=== PATIENT | female | born 1960 | race African-American/Black ===

== ENCOUNTER → 2017-08-12 | Outpatient (CLI) | payer BC ==
[2016-09-30 14:19] VITALS: BP 153/83
[~2017-08-12] MED LIST: HYDR-971 PO; ONDA4TAB10 SL
--- NOTE | 2017-08-13 13:54 | RAD ---
DATE: 08/12/2017 EXAM: DIGITAL SCREEN BILAT W/CAD HISTORY: Asymptomatic screening mammogram COMPARISON: Prior mammogram from 08/06/2016, 07/11/2015, 11/30/2013 This study was interpreted with the benefit of Computerized Aided Detection (CAD). The breast parenchyma shows scattered fibroglandular densities. Breast parenchyma level B. FINDINGS: Bilateral CC and MLO views of the breasts were performed. Right breast: There are no suspicious microcalcifications, masses or areas of architectural distortion. Left breast: There are no suspicious microcalcifications, masses or areas of architectural distortion. Findings are stable from prior mammogram. IMPRESSION: Negative bilateral mammogram. BI-RADS CATEGORY: 1 NEGATIVE RECOMMENDED FOLLOW-UP: 12M 12 MONTH FOLLOW-UP PQRS compliance statement: Patient information was entered into a reminder system with a target due date 08/12/2018 for the next mammogram. Mammography is a sensitive method for finding small breast cancers, but it does not detect them all and is not a substitute for careful clinical examination. A negative mammogram does not negate a clinically suspicious finding and should not result in delay in biopsying a clinically suspicious abnormality. "Our facility is accredited by the [employer] Mammography [employer]."
== END | disposition home or self-care (01) ==
LOC: MAMMO 07:57
PROVIDERS: ATTEND Internal Medicine
DX: Z12.31 Encounter for screening mammogram for malignant neoplasm of breast (principal)
CPT/HCPCS: G0202; 77067

== ENCOUNTER → 2018-09-29 | Outpatient (CLI) | payer BC ==
[2016-09-30 14:19] VITALS: BP 153/83
--- NOTE | 2018-10-01 08:29 | RAD ---
DATE: 09/29/2018 EXAM: DIGITAL SCREEN BILAT W/CAD HISTORY: Routine screening COMPARISON: 08/12/2017 This study was interpreted with the benefit of Computerized Aided Detection (CAD). Breast Density: SCATTERED The breast parenchyma shows scattered fibroglandular densities. Breast parenchyma level B. FINDINGS: No new or enlarging breast densities are seen. A few scattered benign type calcifications are present. No suspicious microcalcifications have developed. IMPRESSION: Stable mammograms without evidence of malignancy. BI-RADS CATEGORY: 2 BENIGN FINDING(S) RECOMMENDED FOLLOW-UP: 12M 12 MONTH FOLLOW-UP PQRS compliance statement: Patient information was entered into a reminder system with a target due date for the next mammogram. Mammography is a sensitive method for finding small breast cancers, but it does not detect them all and is not a substitute for careful clinical examination. A negative mammogram does not negate a clinically suspicious finding and should not result in delay in biopsying a clinically suspicious abnormality. "Our facility is accredited by the [employer] Mammography [employer]."
== END | disposition home or self-care (01) ==
LOC: MAMMO 09:30
PROVIDERS: ATTEND Internal Medicine
DX: Z12.31 Encounter for screening mammogram for malignant neoplasm of breast (principal)
CPT/HCPCS: 77067

== ENCOUNTER → 2019-11-30 | Outpatient (CLI) | payer BC ==
[2016-09-30 14:19] VITALS: BP 153/83
[~2019-11-30] MED LIST changes: +HYDR-3164 PO; -HYDR-971 PO
--- NOTE | 2019-12-02 17:19 | RAD ---
DATE: 11/30/2019 EXAM: MAMMO JUANJO SCREENING BILATERAL HISTORY: Routine screening COMPARISON: 09/29/2018, 08/12/2017, 08/06/2016, 11/30/2013, 07/11/2015 This study was interpreted with the benefit of Computerized Aided Detection (CAD). Breast Density: SCATTERED The breast parenchyma shows scattered fibroglandular densities. Breast parenchyma level B. FINDINGS: Prominent vascularity is noted involving the axillary regions greater on the left. No suspicious calcification or distortion. No suspicious masses. IMPRESSION: Stable BI-RADS CATEGORY: 1 NEGATIVE RECOMMENDED FOLLOW-UP: 12M 12 MONTH FOLLOW-UP PQRS compliance statement: Patient information was entered into a reminder system with a target due date for the next mammogram. Mammography is a sensitive method for finding small breast cancers, but it does not detect them all and is not a substitute for careful clinical examination. A negative mammogram does not negate a clinically suspicious finding and should not result in delay in biopsying a clinically suspicious abnormality. "Our facility is accredited by the [employer] Mammography [employer]."
== END | disposition home or self-care (01) ==
LOC: MAMMO 08:28
PROVIDERS: ATTEND Internal Medicine
DX: Z12.31 Encounter for screening mammogram for malignant neoplasm of breast (principal)
CPT/HCPCS: 77063; 77067

== ENCOUNTER → 2021-01-23 | Outpatient (CLI) | payer BC ==
[2016-09-30 14:19] VITALS: BP 153/83
--- NOTE | 2021-01-25 08:51 | RAD ---
DATE: 01/23/2021 9:59 AM EXAM: MAMMO JUANJO SCREENING BILATERAL HISTORY: Screening COMPARISON: 11/30/2019 Bilateral CC and MLO views of the breasts were performed. Bilateral breast tomosynthesis was performed in CC and MLO projections. This study was interpreted with the benefit of Computerized Aided Detection (CAD). FINDINGS: Breast Density: SCATTERED The breast parenchyma shows scattered fibroglandular densities. Breast parenchyma level B No suspicious masses, microcalcifications or architectural distortion is present to suggest malignancy in either breast. The visualized axillae are unremarkable. IMPRESSION: No mammographic evidence of malignancy. BI-RADS CATEGORY: 1 NEGATIVE RECOMMENDED FOLLOW-UP: 12M 12 MONTH FOLLOW-UP Annual screening mammography is recommended, unless clinically indicated sooner based on symptoms or change in physical exam. PQRS compliance statement: Patient information was entered into a reminder system with a target due date for the next mammogram. Mammography is a sensitive method for finding small breast cancers, but it does not detect them all and is not a substitute for careful clinical examination. A negative mammogram does not negate a clinically suspicious finding and should not result in delay in biopsying a clinically suspicious abnormality. "Our facility is accredited by the [employer] Mammography [employer]."
== END ==
LOC: MAMMO 09:57
PROVIDERS: ATTEND Internal Medicine
DX: Z12.31 Encounter for screening mammogram for malignant neoplasm of breast (principal)
CPT/HCPCS: 77063; 77067

== ENCOUNTER 2022-01-20 16:06 | Inpatient (IN) | payer BC ==
[~2022-01-20] VITALS: Ht 157.5 cm; Wt 120.9 kg
--- NOTE | 2022-01-20 16:31 | EKG ---
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
--- NOTE | 2022-01-20 16:45 | RAD ---
Exam: Chest one view INDICATION: Chest pain TECHNIQUE: Frontal view of the chest Comparisons: None FINDINGS: The cardiomediastinal silhouette and pulmonary vessels are within normal limits. The lung and pleural spaces are clear. IMPRESSION: No acute cardiopulmonary process. Electronically signed by: Darshan Mcdermott MD (01/20/2022 4:42 PM) SIL
--- NOTE | 2022-01-20 16:56 | PHYS DOC ---
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 She has no active chest pain currently in the emergency department. Reports history of COVID December 05 of this year. Has been vaccinated for Covid but was due for booster at the time of infection. Complains of leg cramps and spasms in her calves since having Covid. Reports her last vomit was this morning, normal brow n color. Denies any cocaine, methamphetamine or alcohol abuse. Past surgical history of CHANELL-BSO. No personal or family history of AAA, AAD, CTD (ehlos danlos or marfans), cardiac arrhythmias (need for AICD), CAD, sudden or unexplainable (under 50 years of age or with exertion), or clotting disorders. Review of Systems: Review of Systems: Constitutional: Denies fever or chills. [] Eyes: Denies change in visual acuity. [] HENT: Denies nasal congestion or sore throat. [] Respiratory: Denies cough or shortness of breath. [] Cardiovascular: Denies chest pain or edema. [] GI: Denies abdominal pain, nausea, vomiting, bloody stools or diarrhea. [] : Denies dysuria. [] Musculoskeletal: Denies back pain or joint pain. [] Integument: Denies rash. [] Neurologic: Denies headache, focal weakness or sensory changes. [] Endocrine: Denies polyuria or polydipsia. [] Lymphatic: Denies swollen glands. [] Psychiatric: Denies depression or anxiety. [] Heart Score: C/O Chest Pain: Yes HEART Score for Chest Pain: HEART Score for Chest Pain Response (Comments) Value History Slighlty/Non-Suspicious 0 ECG Nonspecific Repolarizatio 1 Age >45 - < 65 1 Risk Factors >3 Risk Factors or Hx CAD 2 Troponin < Normal Limit 0 Total 4 Risk Factors: Risk Factors: DM, Current or recent (<one month) smoker, HTN, HLP, family history of CAD, obesity. Risk Scores: Score 0 - 3: 2.5% MACE over next 6 weeks - Discharge Home Score 4 - 6: 20.3% MACE over next 6 weeks - Admit for Clinical Observation Score 7 - 10: 72.7% MACE over next 6 weeks - Early Invasive Strategies Allergies: Allergies: Allergies Coded Allergies Type Severity Reaction Last Updated Verified No Known Drug Allergies 01/20/22 No Physical Exam: PE: Constitutional: Well developed, well nourished, no acute distress, non-toxic appearance. HENT: Normocephalic, atraumatic, Eyes: EOMI, conjunctiva normal, no discharge. Neck: Normal range of motion, supple, Cardiovascular: S1/2 present, regular rhythm Lungs & Thorax: Speaking in full sentences, bilateral equal chest rise, no tachypnea or increased work of breathing Abdomen: soft, no tenderness, Skin: Warm, dry, no erythema, no rash. [] Extremities: No tenderness, no cyanosis, no lower extremity edema Neurologic: Alert and oriented X 3, normal motor function, normal sensory function, no focal deficits noted. [] Psychologic: Affect normal, judgement normal, mood normal. [] Current Patient Data: Vital Signs: Vital Signs Date Time Temp Pulse Resp B/P (MAP) Pulse Ox O2 Delivery O2 Flow Rate FiO2 01/20/22 16:08 98.7 100 20 176/84 (114) 99 Room Air 98.7 EKG: EKG: Sinus tachycardia 105 bpm, no axis deviation, normal intervals, Q-wave lead III, T wave inversion V2, no ST elevation or ST depression, reports no active chest pain 1718admitted 9 bpm, right axis deviation, normal intervals, Q-wave lead III, T wave inversion lead III, V2 and V3, no ST ovation or ST depression, reports no active chest pain Radiology/Procedures: Radiology/Procedures: IMAGING REPORT Signed PATIENT: ISMAEL FAN ACCOUNT: [id number] : 1960 LOCATION: ER AGE: 61 SEX: F EXAM STATUS: PRE ER ORD. PHYSICIAN: ESTUARDO SOLIS DO REASON: cp PROCEDURE: PORTABLE CHEST 1V Exam: Chest one view INDICATION: Chest pain TECHNIQUE: Frontal view of the chest Comparisons: None FINDINGS: The cardiomediastinal silhouette and pulmonary vessels are within normal limits. The lung and pleural spaces are clear. IMPRESSION: No acute cardiopulmonary process. Electronically signed by: Darshan Monte MD (01/20/2022 4:42 PM) [facility] DICTATED and SIGNED BY: DARSHAN MONTE MD DATE: 01/20/22 [id number] Course & Med Decision Making: Course & Med Decision Making Pertinent Labs and Imaging studies reviewed. (See chart for details) Concern squeezing chest pain in a moderate risk individual. EKG with anterior T wave inversions. Patient's repeat blood pressure is 133/80. Patient with no further tachycardia. Patient has been asymptomatic emergency department. Due to heart score will admit for further medical management with cardiology consulted. I have spoken with the patient and/or caregivers. I have explained the patient's condition, diagnosis and treatment plan based on the information available to me at this time. I have answered the patient's and/or caregivers questions and answered any concerns. The patient and/or caregivers have as good an understanding of the patient's diagnosis, condition and treatment plan as can be expected at this point. The patient has been stabilized within the capability of the emergency department. The patient will be transported for further care and management or will be moved to an observation or inpatient service. I have communicated with the staff or medical practitioner taking over this patient's care. Dragon Disclaimer: Mayank Disclaimer: This electronic medical record was generated, in whole or in part, using a voice recognition dictation system. Departure Departure Impression: Primary Impression: Chest pain Disposition: ADMITTED INPATIENT Admitting Physician: ELIAN (Dr. Anthony) Condition: STABLE Referrals: GLEN AGUIRRE MD (PCP) ESTUARDO SOLIS DO Jan 20, 2022 16:56
[2022-01-20 17:14] LABS: BASO # 0.1 x10^3/uL (0.0-0.2); BASO % 2 % (0-3); EOS # 0.1 x10^3/uL (0.0-0.7); EOS % 1 % (0-3); HEMATOCRIT 40.3 % (36.0-47.0); HEMOGLOBIN 13.5 g/dL (12.0-15.5); LYMPH # 2.6 x10^3/uL (1.0-4.8); LYMPH % 47 % (24-48); MEAN CORPUSCULAR HEMOGLOBIN 27 pg (25-35); MEAN CORPUSCULAR HGB CONC 34 g/dL (31-37); MEAN CORPUSCULAR VOLUME 81 fL (79-100); MONO # 0.3 x10^3/uL (0.0-1.1); MONO % 6 % (0-9); NEUT # 2.5 x10^3/uL (1.8-7.7); NEUT % 45 % (31-73); PLATELET COUNT 276 x10^3/uL (140-400); RED BLOOD COUNT 4.96 x10^6/uL (3.50-5.40); RED CELL DISTRIBUTION WIDTH 13.2 % (11.5-14.5); WHITE BLOOD COUNT 5.6 x10^3/uL (4.0-11.0)
[2022-01-20 17:27] LABS: CALCIUM 8.9 mg/dL (8.5-10.1); CREATININE 0.9 mg/dL (0.6-1.0); GFR 77.5; POTASSIUM 3.6 mmol/L (3.5-5.1)
[2022-01-20 17:33] LABS: ALBUMIN 4.1 g/dL (3.4-5.0); ALBUMIN/GLOBULIN RATIO 1.1 (1.0-1.7); MAGNESIUM 1.6 mg/dL (1.8-2.4); TOTAL BILIRUBIN 0.4 mg/dL (0.2-1.0)
[2022-01-20] MEDS ORDERED: ONDANSETRON PF 4 MG/2 ML VIAL. IVP PRN (18:30)
[2022-01-20] MEDS ORDERED: ELECTROLYTE (NON-ICU) PROTOCOL. MC PRN (18:30)
[2022-01-20] MEDS ORDERED: CALCIUM CARBONATE 500 MG TAB.CHEW PO PRN (18:30)
[2022-01-20] MEDS ORDERED: ACETAMINOPHEN 325 MG TABLET. PO PRN (18:30)
[2022-01-20] MEDS ORDERED: IV DEXTROSE 5% 250 ML BAG. IV PRN (18:30)
[2022-01-20] MEDS ORDERED: ZOLPIDEM 5 MG TABLET. PO PRN (18:30)
[2022-01-20] MEDS ORDERED: DEXTROSE 50% 25 GM / 50ML DISP.SYRIN. IV PRN (18:30)
[2022-01-20 19:00] LABS: BARBITURATES NEG (NEG); BENZODIAZEPINES NEG (NEG); CANNABINOIDS NEG (NEG); COCAINE NEG (NEG); METHADONE NEG (NEG); OPIATES NEG (NEG); PHENCYCLIDINE NEG (NEG)
[2022-01-20] MEDS ORDERED: MAGNESIUM SULFATE 4GM 100 ML IV ONE (19:00)
[2022-01-20 19:02] LABS: AMPHETAMINE/METHAMPHETAMINE NEG (NEG)
[2022-01-20 19:43] VITALS: BP 135/80
[2022-01-20] MEDS ORDERED: METF750T39 PO (20:12)
[2022-01-20] MEDS ORDERED: LISI1TAB39 PO (20:12)
[2022-01-20] MEDS ORDERED: ATOR40TA59 PO (20:12)
[2022-01-20] MEDS ORDERED: GLIP5TAB22 PO (20:12)
[2022-01-20] MEDS: SENNOSIDES/DOCUSATE 8.6/50MG TABLET. PO SCH (21:35)
[2022-01-20] MEDS: HEPARIN for SUB-Q USE 5,000 UNIT/ML VIAL. SQ SCH (21:36)
[2022-01-20 23:14] VITALS: BP 123/72
--- NOTE | 2022-01-20 23:16 | NUR ---
Pt arrived to unit accompanied by ED RN. Patient reports no pain, resting comfortably on RA. Patient states that her son Chris just got out of the hospital so Jere Clement (friend) will be her first emergency contact [phone]. Chris Fermin (son) is second contact [phone]. Pt had COVID Dec 05, 2021. Has had two Pfizer vaccines, is due for her booster. Pt states that she has been having this chest pain for approx 4 days now and has been taking a baby aspirin along with her current medications. States that the pain got worse today and made her cry. Pt also states that she has had this pain before intermittently but has went away with out going to the doctors. Oriented patient to unit. bed in low locked position, call light in reach. will continue to monitor.
[2022-01-21 02:57] VITALS: BP 136/72
[2022-01-21] MEDS: HEPARIN for SUB-Q USE 5,000 UNIT/ML VIAL. SQ SCH ×2 (05:55→14:39)
[2022-01-21 07:00] VITALS: BP 137/74
--- NOTE | 2022-01-21 07:34 | EKG ---
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
[2022-01-21] MEDS ORDERED: INSULIN LISPRO 300 UNITS/3 ML VIAL. SQ SCH (08:00)
[2022-01-21] MEDS: SENNOSIDES/DOCUSATE 8.6/50MG TABLET. PO SCH (08:51)
[2022-01-21] MEDS ORDERED: INSULIN GLARGINE SYRINGE. SQ ONE (09:00)
[2022-01-21] MEDS ORDERED: DEXTROSE 50% 25 GM / 50ML DISP.SYRIN. IV PRN (09:00)
[2022-01-21] MEDS ORDERED: IV DEXTROSE 5% 250 ML BAG. IV PRN (09:00)
[2022-01-21] MEDS ORDERED: FLU VACC QUAD 21-22 (6MOS+) PF 0.5 ML SYRINGE. VAX IM ONE (09:00)
[2022-01-21] MEDS ORDERED: MAGNESIUM SULFATE 2GM 50 ML IV ONE (10:00)
[2022-01-21 11:04] VITALS: BP 117/75
[2022-01-21] MEDS ORDERED: IOHEXOL 350 MG/ML 100 ML VIAL. IV ONE (11:45)
[2022-01-21] MEDS ORDERED: CONTRAST GIVEN. MC PRN (12:00)
--- NOTE | 2022-01-21 12:12 | PDOC ---
PROGRESS NOTES Date of Service: DATE: 01/21/22 TIME: 12:12 Objective Objective Vital Signs Date Time Temp Pulse Resp B/P (MAP) Pulse Ox O2 Delivery O2 Flow Rate FiO2 01/21/22 11:04 97.9 76 18 117/75 (89) 96 Room Air 97.9 Intake and Output 01/21/22 07:00 Intake Total 422 ml Output Total 400 ml Balance 22 ml Intake Oral 422 ml Output Urine Total 400 ml Assessment Assessment Problems Medical Problems: (1) Chest pain Status: Acute Plan Plan of Care Problems Medical Problems: (1) Chest pain Status: Acute Comment Review of Relevant I have reviewed the following items keith (where applicable) has been applied. Labs Laboratory Tests Test 01/20/22 17:08 01/20/22 18:45 01/20/22 21:09 01/21/22 04:30 White Blood Count 5.6 x10^3/uL (4.0-11.0) Red Blood Count 4.96 x10^6/uL (3.50-5.40) Hemoglobin 13.5 g/dL (12.0-15.5) Hematocrit 40.3 % (36.0-47.0) Mean Corpuscular Volume 81 fL (79-100) Mean Corpuscular Hemoglobin 27 pg (25-35) Mean Corpuscular Hemoglobin Concent 34 g/dL (31-37) Red Cell Distribution Width 13.2 % (11.5-14.5) Platelet Count 276 x10^3/uL (140-400) Neutrophils (%) (Auto) 45 % (31-73) Lymphocytes (%) (Auto) 47 % (24-48) Monocytes (%) (Auto) 6 % (0-9) Eosinophils (%) (Auto) 1 % (0-3) Basophils (%) (Auto) 2 % (0-3) Neutrophils # (Auto) 2.5 x10^3/uL (1.8-7.7) Lymphocytes # (Auto) 2.6 x10^3/uL (1.0-4.8) Monocytes # (Auto) 0.3 x10^3/uL (0.0-1.1) Eosinophils # (Auto) 0.1 x10^3/uL (0.0-0.7) Basophils # (Auto) 0.1 x10^3/uL (0.0-0.2) Sodium Level 139 mmol/L (136-145) Potassium Level 3.6 mmol/L (3.5-5.1) Chloride Level 101 mmol/L (98-107) Carbon Dioxide Level 26 mmol/L (21-32) Anion Gap 12 (6-14) Blood Urea Nitrogen 12 mg/dL (7-20) Creatinine 0.9 mg/dL (0.6-1.0) Estimated GFR (Cockcroft-Gault) 77.5 BUN/Creatinine Ratio 13 (6-20) Glucose Level 298 mg/dL (70-99) Calcium Level 8.9 mg/dL (8.5-10.1) Magnesium Level 1.6 mg/dL (1.8-2.4) Total Bilirubin 0.4 mg/dL (0.2-1.0) Aspartate Amino Transf (AST/SGOT) 21 U/L (15-37) Alanine Aminotransferase (ALT/SGPT) 48 U/L (14-59) Alkaline Phosphatase 78 U/L (46-116) Troponin I High Sensitivity 5 ng/L (4-50) 6 ng/L (4-50) KN-Naw-J-Type Natriuretic Peptide 6 pg/mL (0-124) Total Protein 8.0 g/dL (6.4-8.2) Albumin 4.1 g/dL (3.4-5.0) Albumin/Globulin Ratio 1.1 (1.0-1.7) Urine Opiates Screen Neg (NEG) Urine Methadone Screen Neg (NEG) Urine Barbiturates Neg (NEG) Urine Phencyclidine Screen Neg (NEG) Urine Amphetamine/Methamphetamine Neg (NEG) Urine Benzodiazepines Screen Neg (NEG) Urine Cocaine Screen Neg (NEG) Urine Cannabinoids Screen Neg (NEG) Urine Ethyl Alcohol Neg (NEG) Glucose (Fingerstick) 270 mg/dL (70-99) Test 01/21/22 07:38 01/21/22 11:46 Glucose (Fingerstick) 215 mg/dL (70-99) 242 mg/dL (70-99) Medications Current Medications Acetaminophen (Tylenol) 650 mg PRN Q6HRS PRN PO Headaches, Temp > 101.5F; Start 01/20/22 at 18:30 Calcium Carbonate/ Glycine (Tums) 500 mg PRN Q3HRS PRN PO UPSET STOMACH; Start 2/24/22 at 18:30 Dextrose (Dextrose 50%-Water Syringe) 12.5 gm PRN Q15MIN PRN IV SEE COMMENTS; Start 01/20/22 at 18:30; Status Cancel Dextrose (Dextrose 50%-Water Syringe) 12.5 gm PRN Q15MIN PRN IV SEE COMMENTS; Start 01/21/22 at 09:00 Dextrose (Iv Dextrose 5%) 250 ml PRN Q15MIN PRN IV SEE COMMENTS; Start 01/20/22 at 18:30; Status Cancel Dextrose (Iv Dextrose 5%) 250 ml PRN Q15MIN PRN IV SEE COMMENTS; Start 01/21/22 at 09:00 Heparin Sodium (Porcine) (Heparin Sodium) 5,000 unit Q8HRS SQ Last administered on 01/21/22at 05:55; Start 01/20/22 at 22:00 Influenza Virus Vaccine Quadrival (Flulaval Quad [id number] Syringe) 0.5 ml ONCE ONCE VAX IM Last administered on 01/21/22at 08:56; Start 01/21/22 at 09:00; Stop 01/21/22 at 09:01; Status DC Info (CONTRAST GIVEN -- Rx MONITORING) 1 each PRN DAILY PRN MC SEE COMMENTS; Start 01/21/22 at 12:00; Stop 01/23/22 at 11:59 Info (Non-Icu Electrolyte Protocol) 1 ea PRN DAILY PRN MC SEE COMMENTS; Start 01/20/22 at 18:30 Insulin Glargine (Lantus Syringe) 10 unit 1X ONCE SQ Last administered on 01/21/22at 09:45; Start 01/21/22 at 09:00; Stop 01/21/22 at 09:01; Status DC Insulin Human Lispro (HumaLOG) 0-7 UNITS TIDWMEALS SQ Last administered on 01/21/22at 08:57; Start 01/21/22 at 08:00; Stop 01/21/22 at 09:02; Status DC Insulin Human Lispro (HumaLOG) 0-9 UNITS TIDWMEALS SQ ; Start 01/21/22 at 12:00 Iohexol (Omnipaque 350 Mg/ml) 100 ml 1X ONCE IV ; Start 01/21/22 at 11:45; Stop 01/21/22 at 11:51; Status DC Magnesium Sulfate 50 ml @ 25 mls/hr 1X ONCE IV Last administered on 01/21/22at 11:05; Start 01/21/22 at 10:00; Stop 01/21/22 at 11:59; Status DC Magnesium Sulfate 100 ml @ 25 mls/hr 1X ONCE IV Last administered on 01/20/22at 18:52; Start 01/20/22 at 19:00; Stop 01/20/22 at 22:59; Status DC Ondansetron HCl (Zofran) 4 mg PRN Q6HRS PRN IVP NAUSEA/VOMITING; Start 01/20/22 at 18:30 Senna/Docusate Sodium (Senna Plus) 1 tab BID PO Last administered on 01/21/22at 08:51; Start 01/20/22 at 21:00 Zolpidem Tartrate (Ambien) 5 mg PRN QHS PRN PO INSOMNIA, MAY REPEAT IN 1HR; Start 01/20/22 at 18:30 Vitals/I & O Vital Sign - Last 24 Hours 01/20/22 01/20/22 01/20/22 01/20/22 16:08 16:15 16:30 17:06 Temp 98.7 98.7 Pulse 100 98 92 Resp 20 B/P (MAP) 176/84 (114) 176/84 (114) 164/86 (112) 124/76 (92) Pulse Ox 99 97 99 O2 Delivery Room Air Room Air Room Air 01/20/22 01/20/22 01/20/22 01/20/22 17:30 18:00 18:30 19:00 Pulse 98 90 85 83 B/P (MAP) 133/80 (97) 121/68 (85) 131/68 (89) 130/61 (84) Pulse Ox 99 98 96 98 O2 Delivery Room Air Room Air Room Air Room Air 01/20/22 01/20/22 01/20/22 01/21/22 19:43 20:00 23:14 02:57 Temp 98.4 97.7 98.0 98.4 97.7 98.0 Pulse 92 76 83 Resp 16 18 16 B/P (MAP) 135/80 (98) 123/72 (89) 136/72 (93) Pulse Ox 95 97 96 O2 Delivery Room Air Room Air Room Air Room Air 01/21/22 01/21/22 01/21/22 07:00 08:00 11:04 Temp 97.8 97.9 97.8 97.9 Pulse 81 76 Resp 18 18 B/P (MAP) 137/74 (95) 117/75 (89) Pulse Ox 95 96 O2 Delivery Room Air Room Air Room Air Intake and Output 01/20/22 01/20/22 01/21/22 15:00 23:00 07:00 Intake Total 222 ml 200 ml Output Total 400 ml Balance 222 ml -200 ml ULYSSES LEA MD Jan 21, 2022 12:12
[2022-01-21] MEDS: INSULIN LISPRO 300 UNITS/3 ML VIAL. SQ SCH ×2 (12:13→17:04)
--- NOTE | 2022-01-21 12:14 | PDOC2 ---
CONSULT Date of Consult Date of Consult DATE: 01/21/22 TIME: 12:14 Reason for Consult Reason for Consult: Chest pain Referring Physician Referring Physician: Dr. Anthony Identification/Chief Complaint Chief Complaint Chest pain Source Source: Chart review, Patient History of Present Illness Reason for Visit: 61-year-old female without any previous cardiac history presented with intermittent episodes of left-sided chest pain that she described as dull and aching sensation usually worse when she is stressed out or anxious. She denied any relation to exertion or food intake. She also denied any orthopnea/PND, palpitations or syncope. She denied any family history of premature coronary artery disease. Past Medical History Past Medical History Hypertension Hyperlipidemia Diabetes mellitus type 2 Past Surgical History Past Surgical History: Hysterectomy Family History Family History Negative for premature coronary disease and positive for hypertension Social History Social History Patient admitted to social intake of alcohol but denied any smoking or drug abuse Current Problem List Problem List Problems Medical Problems: (1) Chest pain Status: Acute Current Medications Current Medications Current Medications Magnesium Sulfate 100 ml @ 25 mls/hr 1X ONCE IV Last administered on 01/20/22at 18:52; Start 01/20/22 at 19:00; Stop 01/20/22 at 22:59; Status DC Ondansetron HCl (Zofran) 4 mg PRN Q6HRS PRN IVP NAUSEA/VOMITING; Start 01/20/22 at 18:30 Calcium Carbonate/ Glycine (Tums) 500 mg PRN Q3HRS PRN PO UPSET STOMACH; Start 01/20/22 at 18:30 Zolpidem Tartrate (Ambien) 5 mg PRN QHS PRN PO INSOMNIA, MAY REPEAT IN 1HR; Start 01/20/22 at 18:30 Info (Non-Icu Electrolyte Protocol) 1 ea PRN DAILY PRN MC SEE COMMENTS; Start 01/20/22 at 18:30 Acetaminophen (Tylenol) 650 mg PRN Q6HRS PRN PO Headaches, Temp > 101.5F; Start 01/20/22 at 18:30 Senna/Docusate Sodium (Senna Plus) 1 tab BID PO Last administered on 01/21/22at 08:51; Start 01/20/22 at 21:00 Heparin Sodium (Porcine) (Heparin Sodium) 5,000 unit Q8HRS SQ Last administered on 01/21/22at 05:55; Start 01/20/22 at 22:00 Insulin Human Lispro (HumaLOG) 0-7 UNITS TIDWMEALS SQ Last administered on 01/21/22at 08:57; Start 01/21/22 at 08:00; Stop 01/21/22 at 09:02; Status DC Dextrose (Dextrose 50%-Water Syringe) 12.5 gm PRN Q15MIN PRN IV SEE COMMENTS; Start 01/20/22 at 18:30; Status Cancel Dextrose (Iv Dextrose 5%) 250 ml PRN Q15MIN PRN IV SEE COMMENTS; Start 01/20/22 at 18:30; Status Cancel Influenza Virus Vaccine Quadrival (Flulaval Quad [id number] Syringe) 0.5 ml ONCE ONCE VAX IM Last administered on 01/21/22at 08:56; Start 01/21/22 at 09:00; Stop 01/21/22 at 09:01; Status DC Insulin Glargine (Lantus Syringe) 10 unit 1X ONCE SQ Last administered on 01/21/22at 09:45; Start 01/21/22 at 09:00; Stop 01/21/22 at 09:01; Status DC Insulin Human Lispro (HumaLOG) 0-9 UNITS TIDWMEALS SQ ; Start 01/21/22 at 12:00 Dextrose (Dextrose 50%-Water Syringe) 12.5 gm PRN Q15MIN PRN IV SEE COMMENTS; Start 01/21/22 at 09:00 Dextrose (Iv Dextrose 5%) 250 ml PRN Q15MIN PRN IV SEE COMMENTS; Start 01/21/22 at 09:00 Magnesium Sulfate 50 ml @ 25 mls/hr 1X ONCE IV Last administered on 01/21/22at 11:05; Start 01/21/22 at 10:00; Stop 01/21/22 at 11:59; Status DC Iohexol (Omnipaque 350 Mg/ml) 100 ml 1X ONCE IV ; Start 01/21/22 at 11:45; Stop 01/21/22 at 11:51; Status DC Info (CONTRAST GIVEN -- Rx MONITORING) 1 each PRN DAILY PRN MC SEE COMMENTS; Start 01/21/22 at 12:00; Stop 01/23/22 at 11:59 Active Scripts Active Reported Glipizide Er (Glipizide) 5 Mg Tab.er.24 1 Tab PO BID Atorvastatin Calcium 40 Mg Tablet 1 Tab PO DAILY Metformin Hcl Er (Metformin Hcl) 750 Mg Tab.er.24h 750 Mg PO BID Lisinopril-Hctz 20-25 Mg Tab (Lisinopril/Hydrochlorothiazide) 1 Each Tablet 1 Tab PO DAILY Allergies Allergies: Coded Allergies: No Known Drug Allergies (Unverified , 01/20/22) ROS PSYCHOLOGICAL ROS: No: Hallucinations Eyes: No Loss of vision HEENT: No: Epistaxis Respiratory: No: Hemoptysis, Shortness of breath Cardiovascular: yes Chest Pain Gastrointestinal: No Vomiting Genitourinary: No Hematuria Neurological: No Seizures Skin: No Rash Physical Exam General: Alert, Oriented X3 HEENT: Atraumatic, PERRLA Lungs: Clear to auscultation Heart: Regular rate Abdomen: Soft Extremities: No edema Neuro: Normal speech Psych/Mental Status: Mood NL Vitals VITALS Vital Signs Date Time Temp Pulse Resp B/P (MAP) Pulse Ox O2 Delivery O2 Flow Rate FiO2 01/21/22 11:04 97.9 76 18 117/75 (89) 96 Room Air 97.9 Labs Labs Laboratory Tests Test 01/20/22 17:08 01/20/22 18:45 01/20/22 21:09 01/21/22 04:30 White Blood Count 5.6 x10^3/uL (4.0-11.0) Red Blood Count 4.96 x10^6/uL (3.50-5.40) Hemoglobin 13.5 g/dL (12.0-15.5) Hematocrit 40.3 % (36.0-47.0) Mean Corpuscular Volume 81 fL (79-100) Mean Corpuscular Hemoglobin 27 pg (25-35) Mean Corpuscular Hemoglobin Concent 34 g/dL (31-37) Red Cell Distribution Width 13.2 % (11.5-14.5) Platelet Count 276 x10^3/uL (140-400) Neutrophils (%) (Auto) 45 % (31-73) Lymphocytes (%) (Auto) 47 % (24-48) Monocytes (%) (Auto) 6 % (0-9) Eosinophils (%) (Auto) 1 % (0-3) Basophils (%) (Auto) 2 % (0-3) Neutrophils # (Auto) 2.5 x10^3/uL (1.8-7.7) Lymphocytes # (Auto) 2.6 x10^3/uL (1.0-4.8) Monocytes # (Auto) 0.3 x10^3/uL (0.0-1.1) Eosinophils # (Auto) 0.1 x10^3/uL (0.0-0.7) Basophils # (Auto) 0.1 x10^3/uL (0.0-0.2) Sodium Level 139 mmol/L (136-145) Potassium Level 3.6 mmol/L (3.5-5.1) Chloride Level 101 mmol/L (98-107) Carbon Dioxide Level 26 mmol/L (21-32) Anion Gap 12 (6-14) Blood Urea Nitrogen 12 mg/dL (7-20) Creatinine 0.9 mg/dL (0.6-1.0) Estimated GFR (Cockcroft-Gault) 77.5 BUN/Creatinine Ratio 13 (6-20) Glucose Level 298 mg/dL (70-99) Calcium Level 8.9 mg/dL (8.5-10.1) Magnesium Level 1.6 mg/dL (1.8-2.4) Total Bilirubin 0.4 mg/dL (0.2-1.0) Aspartate Amino Transf (AST/SGOT) 21 U/L (15-37) Alanine Aminotransferase (ALT/SGPT) 48 U/L (14-59) Alkaline Phosphatase 78 U/L (46-116) Troponin I High Sensitivity 5 ng/L (4-50) 6 ng/L (4-50) VV-Lhy-W-Type Natriuretic Peptide 6 pg/mL (0-124) Total Protein 8.0 g/dL (6.4-8.2) Albumin 4.1 g/dL (3.4-5.0) Albumin/Globulin Ratio 1.1 (1.0-1.7) Urine Opiates Screen Neg (NEG) Urine Methadone Screen Neg (NEG) Urine Barbiturates Neg (NEG) Urine Phencyclidine Screen Neg (NEG) Urine Amphetamine/Methamphetamine Neg (NEG) Urine Benzodiazepines Screen Neg (NEG) Urine Cocaine Screen Neg (NEG) Urine Cannabinoids Screen Neg (NEG) Urine Ethyl Alcohol Neg (NEG) Glucose (Fingerstick) 270 mg/dL (70-99) Test 01/21/22 07:38 01/21/22 11:46 Glucose (Fingerstick) 215 mg/dL (70-99) 242 mg/dL (70-99) Laboratory Tests Test 01/20/22 17:08 01/20/22 18:45 01/20/22 21:09 01/21/22 04:30 White Blood Count 5.6 x10^3/uL (4.0-11.0) Red Blood Count 4.96 x10^6/uL (3.50-5.40) Hemoglobin 13.5 g/dL (12.0-15.5) Hematocrit 40.3 % (36.0-47.0) Mean Corpuscular Volume 81 fL (79-100) Mean Corpuscular Hemoglobin 27 pg (25-35) Mean Corpuscular Hemoglobin Concent 34 g/dL (31-37) Red Cell Distribution Width 13.2 % (11.5-14.5) Platelet Count 276 x10^3/uL (140-400) Neutrophils (%) (Auto) 45 % (31-73) Lymphocytes (%) (Auto) 47 % (24-48) Monocytes (%) (Auto) 6 % (0-9) Eosinophils (%) (Auto) 1 % (0-3) Basophils (%) (Auto) 2 % (0-3) Neutrophils # (Auto) 2.5 x10^3/uL (1.8-7.7) Lymphocytes # (Auto) 2.6 x10^3/uL (1.0-4.8) Monocytes # (Auto) 0.3 x10^3/uL (0.0-1.1) Eosinophils # (Auto) 0.1 x10^3/uL (0.0-0.7) Basophils # (Auto) 0.1 x10^3/uL (0.0-0.2) Sodium Level 139 mmol/L (136-145) Potassium Level 3.6 mmol/L (3.5-5.1) Chloride Level 101 mmol/L (98-107) Carbon Dioxide Level 26 mmol/L (21-32) Anion Gap 12 (6-14) Blood Urea Nitrogen 12 mg/dL (7-20) Creatinine 0.9 mg/dL (0.6-1.0) Estimated GFR (Cockcroft-Gault) 77.5 BUN/Creatinine Ratio 13 (6-20) Glucose Level 298 mg/dL (70-99) Calcium Level 8.9 mg/dL (8.5-10.1) Magnesium Level 1.6 mg/dL (1.8-2.4) Total Bilirubin 0.4 mg/dL (0.2-1.0) Aspartate Amino Transf (AST/SGOT) 21 U/L (15-37) Alanine Aminotransferase (ALT/SGPT) 48 U/L (14-59) Alkaline Phosphatase 78 U/L (46-116) Troponin I High Sensitivity 5 ng/L (4-50) 6 ng/L (4-50) ZD-Msw-I-Type Natriuretic Peptide 6 pg/mL (0-124) Total Protein 8.0 g/dL (6.4-8.2) Albumin 4.1 g/dL (3.4-5.0) Albumin/Globulin Ratio 1.1 (1.0-1.7) Urine Opiates Screen Neg (NEG) Urine Methadone Screen Neg (NEG) Urine Barbiturates Neg (NEG) Urine Phencyclidine Screen Neg (NEG) Urine Amphetamine/Methamphetamine Neg (NEG) Urine Benzodiazepines Screen Neg (NEG) Urine Cocaine Screen Neg (NEG) Urine Cannabinoids Screen Neg (NEG) Urine Ethyl Alcohol Neg (NEG) Glucose (Fingerstick) 270 mg/dL (70-99) Test 01/21/22 07:38 01/21/22 11:46 Glucose (Fingerstick) 215 mg/dL (70-99) 242 mg/dL (70-99) Assessment/Plan Assessment/Plan 1. Chest pain with atypical features. Myocardial infarction has been ruled out. Check 2D echo to assess LV systolic function and rule out wall motion abnormalities. Due to her multiple cardiovascular risk factors, we will plan for outpatient stress test to rule out any significant ischemia. 2. Hypertension: Controlled 3. Hyperlipidemia: Continue statin therapy 4. Diabetes mellitus type 2: Treat per IM Thank you for your consultation ULYSSES LEA MD Jan 21, 2022 12:14
--- NOTE | 2022-01-21 13:21 | NUR ---
SS following for discharge planning. SS reviewed pt chart and discussed with pt RN. Pt is from home and is currently on room air. Cardiology consulted. ECHO ordered. SS will continue to follow for discharge planning.
--- NOTE | 2022-01-21 13:46 | RAD ---
Examination: CT angiography chest with IV contrast HISTORY: History of chest pain COMPARISON: None TECHNIQUE: Axial CT angiographic images of chest were performed with IV contrast. Coronal and sagitta l 3-D MIP reformats performed Exposure: One or more of the following individualized dose reduction techniques were utilized for thi s examination: 1. Automated exposure control 2. Adjustment of the mA and/or kV according to patient size 3. Use of iterative reconstruction technique FINDINGS: The visualized thyroid gland grossly appears unremarkable. Coronary artery calcifications. Central ai rways are patent. Caliber of the aorta grossly appears unremarkable. There is no evidence of filling defect identified in the main pulmonary arterial trunk and right and left main pulmonary arteries and the visualized lobar, segmental branch of the pulmonary arteries. Linear atelectasis right upper lob e, bibasilar lungs. Diffuse decreased attenuation noted in the liver likely hepatic steatosis. The sp franca, adrenals grossly appears unremarkable Moderate degenerative changes thoracic spine. IMPRESSION: 1. No evidence of pulmonary embolism. 2. Coronary artery calcifications. 3. Linear atelectasis right upper lobe, bibasilar lungs. 4. Hepatic steatosis. Electronically signed by: Dario Caal MD (01/21/2022 1:43 PM) [id number]
[2022-01-21 14:01] VITALS: BP 144/80
--- NOTE | 2022-01-21 14:53 | PDOC1 ---
History and Physical Date of Admission Date of Admission DATE: 01/21/22 TIME: 14:48 Source Source: Chart review, Patient History of Present Illness History of Present Illness pt seen 0830, and 1430 Ms Mckoy is a 61-year-old -[place] female admti wtih intermittent left- sided, nonradiating and intermittent chest pain stating, pressure and squeezign pain her son just got out of the hospital and she talked at [facility] about that and the stress she has with his health problems, very obese and has CHF she had COVID last month, dec 05, was vacccinated. she vomited yesteday, has eaten today Past Medical History Cardiovascular: HTN, Hyperlipidemia Pulmonary: No pertinent hx ENT: No pertinent hx Renal/: No pertinent hx Endocrine: Diabetes Past Surgical History Past Surgical History CHANELL BSO Family History Family History: No Significant Social History Smoke: No ALCOHOL: rare Drugs: None Current Problem List Problem List Problems Medical Problems: (1) Chest pain Status: Acute Current Medications Current Medications Current Medications Magnesium Sulfate 100 ml @ 25 mls/hr 1X ONCE IV Last administered on 01/20at 18:52; Start 01/20/22 at 19:00; Stop 01/20/22 at 22:59; Status DC Ondansetron HCl (Zofran) 4 mg PRN Q6HRS PRN IVP NAUSEA/VOMITING; Start 01/20/22 at 18:30 Calcium Carbonate/ Glycine (Tums) 500 mg PRN Q3HRS PRN PO UPSET STOMACH; Start 01/20/22 at 18:30 Zolpidem Tartrate (Ambien) 5 mg PRN QHS PRN PO INSOMNIA, MAY REPEAT IN 1HR; Start 01/20/22 at 18:30 Info (Non-Icu Electrolyte Protocol) 1 ea PRN DAILY PRN MC SEE COMMENTS; Start 01/20/22 at 18:30 Acetaminophen (Tylenol) 650 mg PRN Q6HRS PRN PO Headaches, Temp > 101.5F; Start 01/20/22 at 18:30 Senna/Docusate Sodium (Senna Plus) 1 tab BID PO Last administered on 01/21/22at 08:51; Start 01/20/22 at 21:00 Heparin Sodium (Porcine) (Heparin Sodium) 5,000 unit Q8HRS SQ Last administered on 01/21/22at 14:39; Start 01/20/22 at 22:00 Insulin Human Lispro (HumaLOG) 0-7 UNITS TIDWMEALS SQ Last administered on 01/21/22at 08:57; Start 01/21/22 at 08:00; Stop 01/21/22 at 09:02; Status DC Dextrose (Dextrose 50%-Water Syringe) 12.5 gm PRN Q15MIN PRN IV SEE COMMENTS; Start 01/20/22 at 18:30; Status Cancel Dextrose (Iv Dextrose 5%) 250 ml PRN Q15MIN PRN IV SEE COMMENTS; Start 01/20/22 at 18:30; Status Cancel Influenza Virus Vaccine Quadrival (Flulaval Quad [id number] Syringe) 0.5 ml ONCE ONCE VAX IM Last administered on 01/21/22at 08:56; Start 01/21/22 at 09:00; Stop 01/21/22 at 09:01; Status DC Insulin Glargine (Lantus Syringe) 10 unit 1X ONCE SQ Last administered on 01/21/22at 09:45; Start 01/21/22 at 09:00; Stop 01/21/22 at 09:01; Status DC Insulin Human Lispro (HumaLOG) 0-9 UNITS TIDWMEALS SQ Last administered on 01/21/22at 12:13; Start 01/21/22 at 12:00 Dextrose (Dextrose 50%-Water Syringe) 12.5 gm PRN Q15MIN PRN IV SEE COMMENTS; Start 01/21/22 at 09:00 Dextrose (Iv Dextrose 5%) 250 ml PRN Q15MIN PRN IV SEE COMMENTS; Start 01/21/22 at 09:00 Magnesium Sulfate 50 ml @ 25 mls/hr 1X ONCE IV Last administered on 01/21/22at 11:05; Start 01/21/22 at 10:00; Stop 01/21/22 at 11:59; Status DC Iohexol (Omnipaque 350 Mg/ml) 100 ml 1X ONCE IV Last administered on 01/21/22at 11:45; Start 01/21/22 at 11:45; Stop 01/21/22 at 11:51; Status DC Info (CONTRAST GIVEN -- Rx MONITORING) 1 each PRN DAILY PRN MC SEE COMMENTS; Start 01/21/22 at 12:00; Stop 01/23/22 at 11:59 Active Scripts Active Reported Glipizide Er (Glipizide) 5 Mg Tab.er.24 1 Tab PO BID Atorvastatin Calcium 40 Mg Tablet 1 Tab PO DAILY Metformin Hcl Er (Metformin Hcl) 750 Mg Tab.er.24h 750 Mg PO BID Lisinopril-Hctz 20-25 Mg Tab (Lisinopril/Hydrochlorothiazide) 1 Each Tablet 1 Tab PO DAILY Allergies Allergies: Coded Allergies: No Known Drug Allergies (Unverified , 01/20/22) ROS General: YES: Chills, Fatigue; No: Night Sweats, Malaise, Appetite, Other PSYCHOLOGICAL ROS: No: Anxiety, Behavioral Disorder, Concentration difficultie, Decreased libido, Depression, Disorientation, Hallucinations, Hostility, Irritablity, Memory difficulties, Mood Swings, Obsessive thoughts, Physical abuse, Sexual abuse, Sleep disturbances, Suicidal ideation, Other Eyes: No Blurry vision, No Decreased vision, No Double vision, No Dry eyes, No Excessive tearing, No Eye Pain, No Itchy Eyes, No Loss of vision, No Photophobia, No Scotomata, No Uses contacts, No Uses glasses, No Other HEENT: No: Heacaches, Visual Changes, Hearing change, Nasal congestion, Nasal discharge, Oral lesions, Sinus pain, Sore Throat, Epistaxis, Sneezing, Snoring, Tinnitus, Vertigo, Vocal changes, Other Respiratory: No: Cough, Hemoptysis, Orthopnea, Pleuritic Pain, Shortness of breath, SOB with excertion, Sputum Changes, Stridor, Tachypnea, Wheezing, Other Cardiovascular: No Chest Pain, No Palpitations, No Orthopnea, No Paroxysmal Noc. Dyspnea, No Edema, No Lt Headedness, No Other Gastrointestinal: No Nausea, No Vomiting, No Abdominal Pain, No Diarrhea, No Constipation, No Melena, No Hematochezia, No Other Genitourinary: No Dysuria, No Frequency, No Incontinence, No Hematuria, No Retention, No Discharge, No Urgency, No Pain, No Flank Pain, No Other, No , No , No , No , No , No , No Musculoskeletal: No Gait Disturbance, No Joint Pain, No Joint Stiffness, No Joint Swelling, No Muscle Pain, No Muscular Weakness, No Pain In:, No Swelling In:, No Other Neurological: No Behavorial Changes, No Bowel/Bladder ControlChng, No Confusion, No Dizziness, No Gait Disturbance, No Headaches, No Impaired Coord/balance, No Memory Loss, No Numbness/Tingling, No Seizures, No Speech Problems, No Tremors, No Visual Changes, No Weakness, No Other Skin: No Dry Skin, No Eczema, No Hair Changes, No Lumps, No Mole Changes, No Mottling, No Nail Changes, No Pruritus, No Rash, No Skin Lesion Changes, No Other, No Acne Physical Exam General: Alert, Oriented X3, Cooperative, No acute distress HEENT: Atraumatic Lungs: Normal air movement Heart: S1S2, RRR, murmurs Abdomen: Normal bowel sounds, Soft Extremities: No cyanosis, No edema Skin: No rashes, No significant lesion Neuro: Normal speech, Normal tone, Sensation intact Psych/Mental Status: Mental status NL, Mood NL Vitals Vitals Vital Signs Date Time Temp Pulse Resp B/P (MAP) Pulse Ox O2 Delivery O2 Flow Rate FiO2 01/21/22 14:01 98.4 81 18 144/80 (101) 97 Room Air 98.4 Labs Labs Laboratory Tests Test 01/20/22 17:08 01/20/22 18:45 01/20/22 21:09 01/21/22 04:30 White Blood Count 5.6 x10^3/uL (4.0-11.0) Red Blood Count 4.96 x10^6/uL (3.50-5.40) Hemoglobin 13.5 g/dL (12.0-15.5) Hematocrit 40.3 % (36.0-47.0) Mean Corpuscular Volume 81 fL (79-100) Mean Corpuscular Hemoglobin 27 pg (25-35) Mean Corpuscular Hemoglobin Concent 34 g/dL (31-37) Red Cell Distribution Width 13.2 % (11.5-14.5) Platelet Count 276 x10^3/uL (140-400) Neutrophils (%) (Auto) 45 % (31-73) Lymphocytes (%) (Auto) 47 % (24-48) Monocytes (%) (Auto) 6 % (0-9) Eosinophils (%) (Auto) 1 % (0-3) Basophils (%) (Auto) 2 % (0-3) Neutrophils # (Auto) 2.5 x10^3/uL (1.8-7.7) Lymphocytes # (Auto) 2.6 x10^3/uL (1.0-4.8) Monocytes # (Auto) 0.3 x10^3/uL (0.0-1.1) Eosinophils # (Auto) 0.1 x10^3/uL (0.0-0.7) Basophils # (Auto) 0.1 x10^3/uL (0.0-0.2) Sodium Level 139 mmol/L (136-145) Potassium Level 3.6 mmol/L (3.5-5.1) Chloride Level 101 mmol/L (98-107) Carbon Dioxide Level 26 mmol/L (21-32) Anion Gap 12 (6-14) Blood Urea Nitrogen 12 mg/dL (7-20) Creatinine 0.9 mg/dL (0.6-1.0) Estimated GFR (Cockcroft-Gault) 77.5 BUN/Creatinine Ratio 13 (6-20) Glucose Level 298 mg/dL (70-99) Calcium Level 8.9 mg/dL (8.5-10.1) Magnesium Level 1.6 mg/dL (1.8-2.4) Total Bilirubin 0.4 mg/dL (0.2-1.0) Aspartate Amino Transf (AST/SGOT) 21 U/L (15-37) Alanine Aminotransferase (ALT/SGPT) 48 U/L (14-59) Alkaline Phosphatase 78 U/L (46-116) Troponin I High Sensitivity 5 ng/L (4-50) 6 ng/L (4-50) NW-Cns-F-Type Natriuretic Peptide 6 pg/mL (0-124) Total Protein 8.0 g/dL (6.4-8.2) Albumin 4.1 g/dL (3.4-5.0) Albumin/Globulin Ratio 1.1 (1.0-1.7) Urine Opiates Screen Neg (NEG) Urine Methadone Screen Neg (NEG) Urine Barbiturates Neg (NEG) Urine Phencyclidine Screen Neg (NEG) Urine Amphetamine/Methamphetamine Neg (NEG) Urine Benzodiazepines Screen Neg (NEG) Urine Cocaine Screen Neg (NEG) Urine Cannabinoids Screen Neg (NEG) Urine Ethyl Alcohol Neg (NEG) Glucose (Fingerstick) 270 mg/dL (70-99) Test 01/21/22 07:38 01/21/22 11:46 Glucose (Fingerstick) 215 mg/dL (70-99) 242 mg/dL (70-99) Laboratory Tests Test 01/20/22 17:08 01/20/22 18:45 01/20/22 21:09 01/21/22 04:30 White Blood Count 5.6 x10^3/uL (4.0-11.0) Red Blood Count 4.96 x10^6/uL (3.50-5.40) Hemoglobin 13.5 g/dL (12.0-15.5) Hematocrit 40.3 % (36.0-47.0) Mean Corpuscular Volume 81 fL (79-100) Mean Corpuscular Hemoglobin 27 pg (25-35) Mean Corpuscular Hemoglobin Concent 34 g/dL (31-37) Red Cell Distribution Width 13.2 % (11.5-14.5) Platelet Count 276 x10^3/uL (140-400) Neutrophils (%) (Auto) 45 % (31-73) Lymphocytes (%) (Auto) 47 % (24-48) Monocytes (%) (Auto) 6 % (0-9) Eosinophils (%) (Auto) 1 % (0-3) Basophils (%) (Auto) 2 % (0-3) Neutrophils # (Auto) 2.5 x10^3/uL (1.8-7.7) Lymphocytes # (Auto) 2.6 x10^3/uL (1.0-4.8) Monocytes # (Auto) 0.3 x10^3/uL (0.0-1.1) Eosinophils # (Auto) 0.1 x10^3/uL (0.0-0.7) Basophils # (Auto) 0.1 x10^3/uL (0.0-0.2) Sodium Level 139 mmol/L (136-145) Potassium Level 3.6 mmol/L (3.5-5.1) Chloride Level 101 mmol/L (98-107) Carbon Dioxide Level 26 mmol/L (21-32) Anion Gap 12 (6-14) Blood Urea Nitrogen 12 mg/dL (7-20) Creatinine 0.9 mg/dL (0.6-1.0) Estimated GFR (Cockcroft-Gault) 77.5 BUN/Creatinine Ratio 13 (6-20) Glucose Level 298 mg/dL (70-99) Calcium Level 8.9 mg/dL (8.5-10.1) Magnesium Level 1.6 mg/dL (1.8-2.4) Total Bilirubin 0.4 mg/dL (0.2-1.0) Aspartate Amino Transf (AST/SGOT) 21 U/L (15-37) Alanine Aminotransferase (ALT/SGPT) 48 U/L (14-59) Alkaline Phosphatase 78 U/L (46-116) Troponin I High Sensitivity 5 ng/L (4-50) 6 ng/L (4-50) VV-Txo-W-Type Natriuretic Peptide 6 pg/mL (0-124) Total Protein 8.0 g/dL (6.4-8.2) Albumin 4.1 g/dL (3.4-5.0) Albumin/Globulin Ratio 1.1 (1.0-1.7) Urine Opiates Screen Neg (NEG) Urine Methadone Screen Neg (NEG) Urine Barbiturates Neg (NEG) Urine Phencyclidine Screen Neg (NEG) Urine Amphetamine/Methamphetamine Neg (NEG) Urine Benzodiazepines Screen Neg (NEG) Urine Cocaine Screen Neg (NEG) Urine Cannabinoids Screen Neg (NEG) Urine Ethyl Alcohol Neg (NEG) Glucose (Fingerstick) 270 mg/dL (70-99) Test 01/21/22 07:38 01/21/22 11:46 Glucose (Fingerstick) 215 mg/dL (70-99) 242 mg/dL (70-99) VTE Prophylaxis Ordered VTE Prophylaxis Devices: Yes VTE Pharmacological Prophylaxi: No Assessment/Plan Assessment/Plan angina, stable obese, morbid, BMI 49 scarring of lung diabetes, hypertension and hyperlipidemia, Justifications for Admission Other Justification MING CAMPBELL MD Jan 21, 2022 14:53
--- NOTE | 2022-01-21 14:54 | PDOC3 ---
Discharge Summary Visit Information Date of Admission: Jan 20, 2022 Date of Discharge: Jan 21, 2022 Final Diagnosis angina, stable obese, morbid, BMI 49 scarring of lung diabetes, hypertension and hyperlipidemia, Problems Medical Problems: (1) Chest pain Status: Acute Brief Hospital Course Allergies Allergies Coded Allergies Type Severity Reaction Last Updated Verified No Known Drug Allergies 01/20/22 No Vital Signs Vital Signs Date Time Temp Pulse Resp B/P (MAP) Pulse Ox O2 Delivery O2 Flow Rate FiO2 01/21/22 14:01 98.4 81 18 144/80 (101) 97 Room Air 98.4 Lab Results Laboratory Tests Test 01/20/22 17:08 01/20/22 18:45 01/20/22 21:09 01/21/22 04:30 White Blood Count 5.6 x10^3/uL (4.0-11.0) Red Blood Count 4.96 x10^6/uL (3.50-5.40) Hemoglobin 13.5 g/dL (12.0-15.5) Hematocrit 40.3 % (36.0-47.0) Mean Corpuscular Volume 81 fL (79-100) Mean Corpuscular Hemoglobin 27 pg (25-35) Mean Corpuscular Hemoglobin Concent 34 g/dL (31-37) Red Cell Distribution Width 13.2 % (11.5-14.5) Platelet Count 276 x10^3/uL (140-400) Neutrophils (%) (Auto) 45 % (31-73) Lymphocytes (%) (Auto) 47 % (24-48) Monocytes (%) (Auto) 6 % (0-9) Eosinophils (%) (Auto) 1 % (0-3) Basophils (%) (Auto) 2 % (0-3) Neutrophils # (Auto) 2.5 x10^3/uL (1.8-7.7) Lymphocytes # (Auto) 2.6 x10^3/uL (1.0-4.8) Monocytes # (Auto) 0.3 x10^3/uL (0.0-1.1) Eosinophils # (Auto) 0.1 x10^3/uL (0.0-0.7) Basophils # (Auto) 0.1 x10^3/uL (0.0-0.2) Sodium Level 139 mmol/L (136-145) Potassium Level 3.6 mmol/L (3.5-5.1) Chloride Level 101 mmol/L (98-107) Carbon Dioxide Level 26 mmol/L (21-32) Anion Gap 12 (6-14) Blood Urea Nitrogen 12 mg/dL (7-20) Creatinine 0.9 mg/dL (0.6-1.0) Estimated GFR (Cockcroft-Gault) 77.5 BUN/Creatinine Ratio 13 (6-20) Glucose Level 298 mg/dL (70-99) Calcium Level 8.9 mg/dL (8.5-10.1) Magnesium Level 1.6 mg/dL (1.8-2.4) Total Bilirubin 0.4 mg/dL (0.2-1.0) Aspartate Amino Transf (AST/SGOT) 21 U/L (15-37) Alanine Aminotransferase (ALT/SGPT) 48 U/L (14-59) Alkaline Phosphatase 78 U/L (46-116) Troponin I High Sensitivity 5 ng/L (4-50) 6 ng/L (4-50) NN-Gfs-H-Type Natriuretic Peptide 6 pg/mL (0-124) Total Protein 8.0 g/dL (6.4-8.2) Albumin 4.1 g/dL (3.4-5.0) Albumin/Globulin Ratio 1.1 (1.0-1.7) Urine Opiates Screen Neg (NEG) Urine Methadone Screen Neg (NEG) Urine Barbiturates Neg (NEG) Urine Phencyclidine Screen Neg (NEG) Urine Amphetamine/Methamphetamine Neg (NEG) Urine Benzodiazepines Screen Neg (NEG) Urine Cocaine Screen Neg (NEG) Urine Cannabinoids Screen Neg (NEG) Urine Ethyl Alcohol Neg (NEG) Glucose (Fingerstick) 270 mg/dL (70-99) Test 01/21/22 07:38 01/21/22 11:46 Glucose (Fingerstick) 215 mg/dL (70-99) 242 mg/dL (70-99) Laboratory Tests Test 01/20/22 17:08 01/20/22 18:45 01/20/22 21:09 01/21/22 04:30 White Blood Count 5.6 x10^3/uL (4.0-11.0) Red Blood Count 4.96 x10^6/uL (3.50-5.40) Hemoglobin 13.5 g/dL (12.0-15.5) Hematocrit 40.3 % (36.0-47.0) Mean Corpuscular Volume 81 fL (79-100) Mean Corpuscular Hemoglobin 27 pg (25-35) Mean Corpuscular Hemoglobin Concent 34 g/dL (31-37) Red Cell Distribution Width 13.2 % (11.5-14.5) Platelet Count 276 x10^3/uL (140-400) Neutrophils (%) (Auto) 45 % (31-73) Lymphocytes (%) (Auto) 47 % (24-48) Monocytes (%) (Auto) 6 % (0-9) Eosinophils (%) (Auto) 1 % (0-3) Basophils (%) (Auto) 2 % (0-3) Neutrophils # (Auto) 2.5 x10^3/uL (1.8-7.7) Lymphocytes # (Auto) 2.6 x10^3/uL (1.0-4.8) Monocytes # (Auto) 0.3 x10^3/uL (0.0-1.1) Eosinophils # (Auto) 0.1 x10^3/uL (0.0-0.7) Basophils # (Auto) 0.1 x10^3/uL (0.0-0.2) Sodium Level 139 mmol/L (136-145) Potassium Level 3.6 mmol/L (3.5-5.1) Chloride Level 101 mmol/L (98-107) Carbon Dioxide Level 26 mmol/L (21-32) Anion Gap 12 (6-14) Blood Urea Nitrogen 12 mg/dL (7-20) Creatinine 0.9 mg/dL (0.6-1.0) Estimated GFR (Cockcroft-Gault) 77.5 BUN/Creatinine Ratio 13 (6-20) Glucose Level 298 mg/dL (70-99) Calcium Level 8.9 mg/dL (8.5-10.1) Magnesium Level 1.6 mg/dL (1.8-2.4) Total Bilirubin 0.4 mg/dL (0.2-1.0) Aspartate Amino Transf (AST/SGOT) 21 U/L (15-37) Alanine Aminotransferase (ALT/SGPT) 48 U/L (14-59) Alkaline Phosphatase 78 U/L (46-116) Troponin I High Sensitivity 5 ng/L (4-50) 6 ng/L (4-50) XT-Whc-H-Type Natriuretic Peptide 6 pg/mL (0-124) Total Protein 8.0 g/dL (6.4-8.2) Albumin 4.1 g/dL (3.4-5.0) Albumin/Globulin Ratio 1.1 (1.0-1.7) Urine Opiates Screen Neg (NEG) Urine Methadone Screen Neg (NEG) Urine Barbiturates Neg (NEG) Urine Phencyclidine Screen Neg (NEG) Urine Amphetamine/Methamphetamine Neg (NEG) Urine Benzodiazepines Screen Neg (NEG) Urine Cocaine Screen Neg (NEG) Urine Cannabinoids Screen Neg (NEG) Urine Ethyl Alcohol Neg (NEG) Glucose (Fingerstick) 270 mg/dL (70-99) Test 01/21/22 07:38 01/21/22 11:46 Glucose (Fingerstick) 215 mg/dL (70-99) 242 mg/dL (70-99) Brief Hospital Course Ms. Freeman is a 61 old famale admit with chest pain, angina, stable, ACS ruled out calcifications of coronaries seen on CT chest. pain better, no nausea echo pending, Discharge Information Condition at Discharge: Improved Follow Up: Weeks Disposition/Orders: D/C to Home Scheduled Atorvastatin Calcium (Atorvastatin Calcium) 40 Mg Tablet, 1 TAB PO DAILY for , (Reported) Entered as Reported by: VERONICA DURAND RN on 01/20/222011 Last Action: New Order on 01/20/222011 by VERONICA DURAND RN Glipizide (Glipizide Er) 5 Mg Tab.er.24, 1 TAB PO BID for , (Reported) Entered as Reported by: VERONICA DURAND RN on 01/20/222011 Last Action: New Order on 01/20/222011 by VERONICA DURAND RN Lisinopril/Hydrochlorothiazide (Lisinopril-Hctz 20-25 Mg Tab) 1 Each Tablet, 1 TAB PO DAILY for hypertension, (Reported) Entered as Reported by: VERONICA DURAND RN on 01/20/222011 Last Action: New Order on 01/20/222011 by VERONICA DURAND RN Metformin Hcl (Metformin Hcl Er) 750 Mg Tab.er.24h, 750 MG PO BID for DM, (Reported) Entered as Reported by: VERONICA DURAND RN on 01/20/222011 Last Action: New Order on 01/20/222011 by VERONICA DURAND RN Patient Instructions Patient Instructions A and D same day Justicifation of Admission Dx: Justifications for Admission: Justification of Admission Dx: No (obs) MING CAMPBELL MD Jan 21, 2022 14:54
--- NOTE | 2022-01-21 18:12 | NUR ---
Pt. discharged to home with self care. Echo result pending, Pt. to follow up with cardiac Dr. next week.
--- NOTE | 2022-01-21 19:56 | CARD ---
MR#: [id number] Date of Study: 01/21/2022 Ordering Physician: ULYSSES LEA, Referring Physician: Rafael GOOD: Brock Amanda [facility] APPROVED REPORT EXAM: Two-dimensional and M-mode echocardiogram with Doppler and color Doppler. Other Information Quality : FairHR: 80bpm Rhythm : NSRTechnically limited study due to body habitus. INDICATION Chest Pain RISK FACTORS Hypertension Obesity Hyperlipidemia Family History Diabetes 2D DIMENSIONS Left Atrium(2D)3.5 (1.6-4.0cm)IVSd0.9 (0.7-1.1cm) Aortic Root(2D)2.9 (2.0-3.7cm)LVDd3.9 (3.9-5.9cm) LVOT Diameter1.8 (1.8-2.4cm)PWd0.9 (0.7-1.1cm) LVDs2.6 (2.5-4.0cm)FS (%) 34.3 % SV42.4 ml Aortic Valve AoV Peak Hao.145.9cm/sAoV VTI26.3cm AO Peak GR.8.5mmHgLVOT VTI 18.31cm AO Mean GR.4mmHg Mitral Valve MV E Upcdstgm86.4cm/sMV E Peak Gr.3mmHg MV DECEL [id number] A Rimrhrgr24.8cm/s MV E Mean Gr.2mmHgE/A Ratio1.3 TDI Lateral E' P. V7.92cm/sMedial E' P. V9.33cm/s E/Lateral E'10.2E/Medial E'8.6 Tricuspid Valve TR P. [id number] Peak Gr.19mmHg LEFT VENTRICLE The left ventricle is normal size. There is normal left ventricular wall thickness. The left ventricu lar systolic function is normal and the ejection fraction is within normal range. LV ejection fractio n is 55 to 60%. There is normal LV segmental wall motion. No left ventricle thrombus noted on this st udy. There is no ventricular septal defect visualized. There is no left ventricular aneurysm. There i s no mass noted in the left ventricle. RIGHT VENTRICLE The right ventricle is normal size. There is normal right ventricular wall thickness. The right ventr icular systolic function is normal. ATRIA The left atrium size is normal. The right atrium size is normal. AORTIC VALVE The aortic valve is normal in structure and function. The aortic valve is mildly sclerotic. Doppler a nd Color Flow revealed no significant aortic regurgitation. There is no significant aortic valvular s tenosis. There is no aortic valvular vegetation. MITRAL VALVE The mitral valve is normal in structure and function. There is no evidence of mitral valve prolapse. There is no mitral valve stenosis. Doppler and Color Flow revealed trace mitral valve regurgitation. TRICUSPID VALVE The tricuspid valve is normal in structure and function. Doppler and Color Flow revealed trace tricus pid regurgitation. The PA pressure was estimated at 26 mmHg. There is no tricuspid valve prolapse or vegetation. There is no tricuspid valve stenosis. PULMONIC VALVE The pulmonic valve is not well seen. Doppler and Color Flow revealed no pulmonic valvular regurgitati on. There is no pulmonic valvular stenosis. GREAT VESSELS The aortic root is normal in size. The ascending aorta is normal in size. The pulmonary artery is nor mal. The IVC is not well seen. PERICARDIAL EFFUSION There is no pleural effusion. There is no evidence of significant pericardial effusion. Critical Notification Critical Value: No <Conclusion> The left ventricle is normal size. The left ventricular systolic function is normal and the ejection fraction is within normal range. LV ejection fraction is 55 to 60%. There is normal LV segmental wall motion. Doppler and Color Flow revealed no significant aortic regurgitation. There is no significant aortic valvular stenosis. Doppler and Color Flow revealed trace mitral valve regurgitation. Doppler and Color Flow revealed trace tricuspid regurgitation. The PA pressure was estimated at 26 mmHg. Signed by : Sherwin Paris MD Electronically Approved : 01/21/2022 19:55:46
== END 2022-01-21 18:10 | disposition home or self-care (01) | DRG 311 ==
LOC: ER 16:06 → 6 SOUTH 17:43
PROVIDERS: ADMIT Student in an Organized Health Care Education/Training Program; ATTEND Student in an Organized Health Care Education/Training Program
DX: I20.9 Angina pectoris, unspecified (principal); Z68.42 Body mass index [BMI] 45.0-49.9, adult; I11.0 Hypertensive heart disease with heart failure; E78.5 Hyperlipidemia, unspecified; E78.00 Pure hypercholesterolemia, unspecified; E11.9 Type 2 diabetes mellitus without complications; E66.01 Morbid (severe) obesity due to excess calories; I50.9 Heart failure, unspecified; Z82.49 Family history of ischemic heart disease and other diseases of the circulatory system; Z86.16 Personal history of COVID-19; Z90.710 Acquired absence of both cervix and uterus
CPT/HCPCS: 36415; 71045; 71275; 80053; 80307; 82962; 83735; 83880; 84484; 85025; 90471; 90686; 93005; 93306; 96365; J1644; J1815; J3475; Q9967; 99285-25; C8929; G0378

== ENCOUNTER → 2022-03-10 | Outpatient (CLI) | payer BC ==
[~2022-03-10] MED LIST changes: +ATOR40TA59 PO; +GLIP5TAB22 PO; +LISI1TAB39 PO; +METF750T39 PO
--- NOTE | 2022-03-10 12:21 | RAD ---
INDICATION: 61 years of age asymptomatic female patient presents for screening mammography. No person al or family history of breast cancer. TECHNIQUE: Full field craniocaudal and mediolateral oblique images of both breasts were obtained usi ng digital technique with tomosynthesis and also analyzed with computer-aided detection software. COMPARISON: Prior mammographic imaging dating back to 08/12/2017. BREAST COMPOSITION: Category B: There are scattered fibroglandular densities. FINDINGS: No suspicious masses, microcalcifications or architectural distortion is present to suggest malignanc y in either breast. The visualized axillae are unremarkable. IMPRESSION: No mammographic evidence of malignancy. RECOMMENDATION: Annual screening mammography is recommended, unless clinically indicated sooner based on symptoms or change in physical exam. BIRADS 1: NEGATIVE This study was interpreted with the benefit of Computerized Aided Detection (CAD). Patient information is entered into the reminder system with a target due date for the next screening mammogram. Mammography is the most sensitive method for finding small breast cancers, but it does not detect the m all and is not a substitute for careful clinical examination. A negative mammogram does not negate a clinically suspicious finding and should not result in delay in biopsying a clinically suspicious a bnormality. "Our facility is accredited by the [employer] Mammography Program." Electronically signed by: Kwasi Davey DO (03/10/2022 12:18 PM) [id number]
== END ==
LOC: MAMMO 08:29
PROVIDERS: ATTEND Internal Medicine
DX: Z12.31 Encounter for screening mammogram for malignant neoplasm of breast (principal)
CPT/HCPCS: 77063; 77067